=== PATIENT | male | born 1965 | race Caucasian/White ===

== ENCOUNTER → 2023-06-10 17:13 | Outpatient (REF) | payer BC, SELFPAY ==
[2023-06-10 17:40] LABS: % Basophils 0.7 % (0-2); % Immature Granulocytes 0.1 % (0-0.5); % Lymphocytes 19.8 % (20.5-51.1); % Monocytes 8.9 % (1.7-9.3); % Neutrophils 68.5 % (42.2-75.2); Absolute Basophils 0.1 10^3/uL (0-0.2); Absolute Eosinophils 0.2 10^3/uL (0-0.7); Absolute Lymphocytes 1.5 10^3/uL (1.2-3.4); Absolute Monocytes 0.7 10^3/uL (0.1-0.6); Absolute Neutrophils 5.2 10^3/uL (1.4-6.5); Hematocrit 35.9 % (39.0-52.0); Hemoglobin 12.3 g/dL (13.0-18.0); Mean Corp Hgb Conc. 34.3 g/dL (33.0-37.0); Mean Corpuscular Hgb 29.4 pg (27.0-31.0); Mean Corpuscular Volume 85.7 fL (80.0-94.0); Mean Platelet Volume 8.7 fL (7.4-10.4); Nucleated Red Blood Cells % 0 % (-); Platelet Count 256 10^3/uL (130-400); Red Blood Cell Count 4.19 10^6/uL (4.70-6.10); Red Cell Dist. Width 12.6 % (11.5-14.5); White Blood Cell Count 7.6 10^3/uL (4.8-10.8)
[2023-06-10 18:24] LABS: PSA, Total - Diagnostic 6.82 ng/ml (0.0-4.0)
== END ==
LOC: REG 17:13
PROVIDERS: ATTENDING PHYSICIAN Specialist; FAMILY PHYSICIAN Family Medicine
DX: D72.89 Other specified disorders of white blood cells (principal); R97.20 Elevated prostate specific antigen [PSA]
CPT/HCPCS: 36415; 84153; 85025

== ENCOUNTER → 2023-07-08 16:29 | Outpatient (REF) | payer BC, SELFPAY ==
[2023-07-08 17:40] LABS: % Eosinophils 2.8 % (0-6); % Immature Granulocytes 0.4 % (0-0.5); % Lymphocytes 29.3 % (20.5-51.1); % Monocytes 14.2 % (1.7-9.3); % Neutrophils 52.3 % (42.2-75.2); Absolute Basophils 0.1 10^3/uL (0-0.2); Absolute Eosinophils 0.1 10^3/uL (0-0.7); Absolute Lymphocytes 1.4 10^3/uL (1.2-3.4); Absolute Monocytes 0.7 10^3/uL (0.1-0.6); Absolute Neutrophils 2.6 10^3/uL (1.4-6.5); Hemoglobin 12.3 g/dL (13.0-18.0); Mean Corp Hgb Conc. 34.2 g/dL (33.0-37.0); Mean Corpuscular Hgb 29.7 pg (27.0-31.0); Mean Platelet Volume 8.9 fL (7.4-10.4); Nucleated Red Blood Cells % 0 % (-); Platelet Count 271 10^3/uL (130-400); Red Blood Cell Count 4.14 10^6/uL (4.70-6.10); Red Cell Dist. Width 12.7 % (11.5-14.5); White Blood Cell Count 4.9 10^3/uL (4.8-10.8)
[2023-07-08 17:55] LABS: Iron 102 ug/dl (49-181)
[2023-07-08 18:04] LABS: Percent Saturation 31 % (20-50); Total Iron Binding Capacity 328 ug/dl (261-462)
[2023-07-08 19:30] LABS: Ferritin 60.1 ng/ml (17.9-464.0)
[2023-07-08 20:00] LABS: Folate 18.9 ng/ml (2.76-20)
== END ==
LOC: REG 16:29
PROVIDERS: ATTENDING PHYSICIAN Family Medicine
DX: D64.9 Anemia, unspecified (principal)
CPT/HCPCS: 36415; 82728; 82746; 83540; 83550; 85025

== ENCOUNTER → 2023-08-03 07:44 | Outpatient (REF) | payer BC, SELFPAY ==
[2023-08-04 13:42] LABS: FIT-Fecal Occult Blood Interp Negative
== END ==
LOC: REG 07:44
PROVIDERS: ATTENDING PHYSICIAN Family Medicine
DX: D64.9 Anemia, unspecified (principal)
CPT/HCPCS: 83520

== ENCOUNTER → 2023-08-09 15:52 | Outpatient (REF) | payer BC, SELFPAY ==
[2023-08-09 17:14] LABS: PSA, Total - Diagnostic 7.13 ng/ml (0.0-4.0)
== END ==
LOC: REG 15:52
PROVIDERS: ATTENDING PHYSICIAN Specialist; FAMILY PHYSICIAN Family Medicine
DX: R97.20 Elevated prostate specific antigen [PSA] (principal)
CPT/HCPCS: 36415; 84153

== ENCOUNTER → 2023-08-19 16:22 | Outpatient (REF) | payer OTHER, BC, SELFPAY | LOC: RAD 16:22 | PROVIDERS: ATTENDING PHYSICIAN Family Medicine | DX: M54.2 Cervicalgia (principal); M54.59 Other low back pain | CPT/HCPCS: 72052; 72110 ==

== ENCOUNTER 2023-09-29 18:52 | Outpatient (RCR) | payer OTHER, BC, SELFPAY | END 2023-09-29 23:59 | disposition home or self-care (01) | LOC: RPT 18:52 | PROVIDERS: ATTENDING PHYSICIAN Physical Medicine & Rehabilitation; FAMILY PHYSICIAN Family Medicine | DX: M50.30 Other cervical disc degeneration, unspecified cervical region (principal); S13.9XXS Sprain of joints and ligaments of unspecified parts of neck, sequela; S33.5XXS Sprain of ligaments of lumbar spine, sequela; V89.2XXS Person injured in unspecified motor-vehicle accident, traffic, sequela; Z73.6 Limitation of activities due to disability | CPT/HCPCS: 97010; 97110; 97112; 97140; 97163 ==

== ENCOUNTER 2023-10-27 17:17 | Outpatient (RCR) | payer OTHER, BC, SELFPAY | END 2023-10-27 23:59 | disposition home or self-care (01) | LOC: RPT 17:17 | PROVIDERS: ATTENDING PHYSICIAN Physical Medicine & Rehabilitation; FAMILY PHYSICIAN Family Medicine | DX: S13.9XXS Sprain of joints and ligaments of unspecified parts of neck, sequela (principal); S33.5XXS Sprain of ligaments of lumbar spine, sequela; M50.30 Other cervical disc degeneration, unspecified cervical region; M51.36 Other intervertebral disc degeneration, lumbar region; V89.2XXS Person injured in unspecified motor-vehicle accident, traffic, sequela; Z73.6 Limitation of activities due to disability | CPT/HCPCS: 97010; 97110; 97112; 97140 ==

== ENCOUNTER → 2023-11-01 08:25 | Outpatient (REF) | payer OTHER, BC, SELFPAY ==
[2023-11-01 09:52] LABS: % Eosinophils 3.6 % (0-6); % Immature Granulocytes 0.3 % (0-0.5); % Lymphocytes 33.1 % (20.5-51.1); % Monocytes 11.8 % (1.7-9.3); % Neutrophils 50.2 % (42.2-75.2); Absolute Eosinophils 0.1 10^3/uL (0-0.7); Absolute Monocytes 0.4 10^3/uL (0.1-0.6); Absolute Neutrophils 1.5 10^3/uL (1.4-6.5); Mean Corp Hgb Conc. 34.2 g/dL (33.0-37.0); Mean Corpuscular Hgb 30.1 pg (27.0-31.0); Mean Platelet Volume 9.1 fL (7.4-10.4); Nucleated Red Blood Cells % 0 % (-); Platelet Count 258 10^3/uL (130-400); Red Blood Cell Count 4.32 10^6/uL (4.70-6.10); Red Cell Dist. Width 12.5 % (11.5-14.5); White Blood Cell Count 3.1 10^3/uL (4.8-10.8)
[2023-11-01 10:27] LABS: ALT (SGPT) 20 U/L (0-50); AST (SGOT) 22 U/L (17-59); Albumin 4.1 g/dl (3.5-5.0); Alkaline Phosphatase 60 U/L (38-126); Blood Urea Nitrogen 11 mg/dl (9-20); Carbon Dioxide 28 mmol/L (22-30); Chloride 105 mmol/L (98-107); Glucose 92 mg/dl (70-99); HDL Cholesterol 59 mg/dl; Iron 136 ug/dl (49-181); LDL Cholesterol, Calculated 109 mg/dl; Potassium 4.4 mmol/L (3.5-5.1); Sodium 138 mmol/L (135-145); Total Bilirubin 0.6 mg/dl (0.2-1.3); Total Cholesterol 183 mg/dl (50-199); Total Protein 6.4 g/dl (6.3-8.2); Triglyceride 79 mg/dl (10-149); Very Low Density Lipoprotein 15 mg/dl (0-30); eGFR > 60.00
[2023-11-01 12:09] LABS: Ferritin 83.6 ng/ml (17.9-464.0)
[2023-11-01 12:41] LABS: Folate > 20.0 ng/ml (2.76-20)
[2023-11-01 13:41] LABS: Vitamin B12 > 1000 pg/ml (239-931)
== END ==
LOC: REG 08:25
PROVIDERS: ATTENDING PHYSICIAN Family Medicine
DX: I10 Essential (primary) hypertension (principal); Z00.00 Encounter for general adult medical examination without abnormal findings; D64.9 Anemia, unspecified
CPT/HCPCS: 36415; 80053; 80061; 82607; 82728; 82746; 83540; 85025

== ENCOUNTER 2023-12-01 16:48 | Outpatient (RCR) | payer OTHER, BC, SELFPAY | END 2023-12-01 23:59 | disposition home or self-care (01) | LOC: RPT 16:48 | PROVIDERS: ATTENDING PHYSICIAN Physical Medicine & Rehabilitation; FAMILY PHYSICIAN Family Medicine | DX: M50.30 Other cervical disc degeneration, unspecified cervical region (principal); S13.9XXS Sprain of joints and ligaments of unspecified parts of neck, sequela; S33.5XXS Sprain of ligaments of lumbar spine, sequela; V89.2XXS Person injured in unspecified motor-vehicle accident, traffic, sequela; Z73.6 Limitation of activities due to disability; M51.36 Other intervertebral disc degeneration, lumbar region | CPT/HCPCS: 97010; 97110; 97112; 97140; 97530 ==

== ENCOUNTER 2023-12-27 16:54 | Outpatient (RCR) | payer OTHER, BC, SELFPAY | END 2023-12-27 23:59 | disposition home or self-care (01) | LOC: RPT 16:54 | PROVIDERS: ATTENDING PHYSICIAN Physical Medicine & Rehabilitation; FAMILY PHYSICIAN Family Medicine | DX: S13.9XXD Sprain of joints and ligaments of unspecified parts of neck, subsequent encounter (principal); S13.9XXS Sprain of joints and ligaments of unspecified parts of neck, sequela; S33.5XXD Sprain of ligaments of lumbar spine, subsequent encounter; M50.30 Other cervical disc degeneration, unspecified cervical region; S33.5XXS Sprain of ligaments of lumbar spine, sequela; V89.2XXS Person injured in unspecified motor-vehicle accident, traffic, sequela; M51.36 Other intervertebral disc degeneration, lumbar region; Z73.6 Limitation of activities due to disability; V43.92XD Unspecified car occupant injured in collision with other type car in traffic accident, subsequent encounter | CPT/HCPCS: 97110; 97112; 97140; 97535 ==

== ENCOUNTER 2024-01-31 17:01 | Outpatient (RCR) | payer OTHER, BC, SELFPAY | END 2024-01-31 23:59 | disposition home or self-care (01) | LOC: RPT 17:01 | PROVIDERS: ATTENDING PHYSICIAN Physical Medicine & Rehabilitation; FAMILY PHYSICIAN Family Medicine | DX: M50.30 Other cervical disc degeneration, unspecified cervical region (principal); S13.9XXD Sprain of joints and ligaments of unspecified parts of neck, subsequent encounter (principal); S13.9XXS Sprain of joints and ligaments of unspecified parts of neck, sequela; S33.5XXD Sprain of ligaments of lumbar spine, subsequent encounter; S33.5XXS Sprain of ligaments of lumbar spine, sequela; V89.2XXS Person injured in unspecified motor-vehicle accident, traffic, sequela; M51.360 Other intervertebral disc degeneration, lumbar region with discogenic back pain only; Z73.6 Limitation of activities due to disability; V43.92XD Unspecified car occupant injured in collision with other type car in traffic accident, subsequent encounter | CPT/HCPCS: 97110; 97112; 97140 ==

== ENCOUNTER 2024-02-07 19:12 | Outpatient (RCR) | payer OTHER, BC, SELFPAY | END 2024-02-17 12:46 | disposition home or self-care (01) | LOC: RPT 19:12 | PROVIDERS: ATTENDING PHYSICIAN Physical Medicine & Rehabilitation; FAMILY PHYSICIAN Family Medicine | DX: S13.9XXD Sprain of joints and ligaments of unspecified parts of neck, subsequent encounter (principal); M50.30 Other cervical disc degeneration, unspecified cervical region (principal); S13.9XXS Sprain of joints and ligaments of unspecified parts of neck, sequela; S33.5XXD Sprain of ligaments of lumbar spine, subsequent encounter; S33.5XXS Sprain of ligaments of lumbar spine, sequela; M51.360 Other intervertebral disc degeneration, lumbar region with discogenic back pain only; V89.2XXS Person injured in unspecified motor-vehicle accident, traffic, sequela; Z73.6 Limitation of activities due to disability; V43.92XD Unspecified car occupant injured in collision with other type car in traffic accident, subsequent encounter | CPT/HCPCS: 97110; 97112 ==

== ENCOUNTER → 2024-02-09 16:49 | Outpatient (REF) | payer BC, SELFPAY | LOC: RAD 16:49 | PROVIDERS: ATTENDING PHYSICIAN Physician Assistant Medical | DX: M79.661 Pain in right lower leg (principal) | CPT/HCPCS: 93971 ==

== ENCOUNTER → 2024-03-08 16:23 | Outpatient (REF) | payer BC, SELFPAY ==
[2024-03-08 17:44] LABS: PSA, Total - Diagnostic 6.76 ng/ml (0.0-4.0)
== END ==
LOC: REG 16:23
PROVIDERS: ATTENDING PHYSICIAN Specialist; FAMILY PHYSICIAN Family Medicine
DX: R97.20 Elevated prostate specific antigen [PSA] (principal)
CPT/HCPCS: 36415; 84153

== ENCOUNTER → 2024-06-08 07:30 | Outpatient (REF) | payer BC, SELFPAY ==
[2024-06-08 09:44] LABS: ALT (SGPT) 32 U/L (0-50); AST (SGOT) 20 U/L (17-59); Albumin 3.9 g/dl (3.5-5.0); Alkaline Phosphatase 58 U/L (38-126); Blood Urea Nitrogen 16 mg/dl (9-20); Calcium 10.1 mg/dl (8.4-10.2); Carbon Dioxide 33 mmol/L (22-30); Chloride 105 mmol/L (98-107); Glucose 94 mg/dl (70-99); Potassium 4.8 mmol/L (3.5-5.1); Sodium 140 mmol/L (135-145); Total Bilirubin 0.6 mg/dl (0.2-1.3); Total Protein 6.4 g/dl (6.3-8.2); eGFR > 60.00
[2024-06-08 09:49] LABS: % Basophils 0.9 % (0-2); % Eosinophils 4.1 % (0-6); % Immature Granulocytes 0.3 % (0-0.5); % Lymphocytes 28.5 % (20.5-51.1); % Monocytes 10.6 % (1.7-9.3); % Neutrophils 55.6 % (42.2-75.2); Absolute Eosinophils 0.1 10^3/uL (0-0.7); Absolute Monocytes 0.4 10^3/uL (0.1-0.6); Absolute Neutrophils 1.9 10^3/uL (1.4-6.5); Hematocrit 40.4 % (39.0-52.0); Hemoglobin 13.9 g/dL (13.0-18.0); Mean Corp Hgb Conc. 34.4 g/dL (33.0-37.0); Mean Corpuscular Hgb 30.3 pg (27.0-31.0); Mean Platelet Volume 8.8 fL (7.4-10.4); Nucleated Red Blood Cells % 0 % (-); Platelet Count 312 10^3/uL (130-400); Red Blood Cell Count 4.59 10^6/uL (4.70-6.10); Red Cell Dist. Width 12.5 % (11.5-14.5); White Blood Cell Count 3.4 10^3/uL (4.8-10.8)
[2024-06-08 10:17] LABS: TSH 1.85 uIU/ml (0.47-4.68)
== END ==
LOC: HWLAB 07:30
PROVIDERS: ATTENDING PHYSICIAN Family Medicine
DX: R21 Rash and other nonspecific skin eruption (principal); I10 Essential (primary) hypertension; N40.0 Benign prostatic hyperplasia without lower urinary tract symptoms; D64.9 Anemia, unspecified; Z01.84 Encounter for antibody response examination
CPT/HCPCS: 36415; 80053; 84443; 85025; 86735; 86765

== ENCOUNTER → 2024-12-21 07:21 | Outpatient (REF) | payer BC, SELFPAY ==
[2024-12-21 13:55] LABS: HDL Cholesterol 63 mg/dl; LDL Cholesterol, Calculated 89 mg/dl; Very Low Density Lipoprotein 16 mg/dl (0-30)
== END ==
LOC: HWLAB 07:21
PROVIDERS: ATTENDING PHYSICIAN Family Medicine
DX: I10 Essential (primary) hypertension (principal); N40.0 Benign prostatic hyperplasia without lower urinary tract symptoms; Z00.01 Encounter for general adult medical examination with abnormal findings
CPT/HCPCS: 36415; 80061

== ENCOUNTER → 2024-12-25 09:37 | Outpatient (REF) | payer BC, SELFPAY ==
[2024-12-25 13:16] LABS: PSA, Total - Diagnostic 4.56 ng/ml (0.0-4.0)
== END ==
LOC: HWRAD 09:37
PROVIDERS: ATTENDING PHYSICIAN Specialist; FAMILY PHYSICIAN Student in an Organized Health Care Education/Training Program
DX: R31.9 Hematuria, unspecified (principal)
CPT/HCPCS: 36415; 74150; 84153

== ENCOUNTER 2025-01-17 06:29 | Day surgery (SDC) | payer BC, SELFPAY ==
[2025-01-09 09:04] LABS: Hematocrit 38.6 % (39.0-52.0); Hemoglobin 12.6 g/dL (13.0-18.0); Mean Corp Hgb Conc. 32.6 g/dL (33.0-37.0); Mean Corpuscular Volume 87.1 fL (80.0-94.0); Platelet Count 275 10^3/uL (130-400); Red Cell Dist. Width 12.9 % (11.5-14.5)
[2025-01-09 09:35] LABS: Blood Urea Nitrogen 15 mg/dl (9-20); Calcium 9.7 mg/dl (8.4-10.2); Carbon Dioxide 27 mmol/L (22-30); Chloride 108 mmol/L (98-107); Glucose 90 mg/dl (70-99); Potassium 4.3 mmol/L (3.5-5.1); Sodium 138 mmol/L (135-145); eGFR > 60.00
[2025-01-09 13:59] VITALS: BMI 28.8
[2025-01-17] VITALS (8 sets, daily range): BP systolic 142–161; BP diastolic 78–93; BMI 28.8
[2025-01-17] MEDS: NORMOSOL-R/PLASMALYTE-A 1000 IV (08:11)
== END 2025-01-17 13:20 | disposition home or self-care (01) ==
LOC: SDS 06:29
PROVIDERS: ATTENDING PHYSICIAN Specialist; FAMILY PHYSICIAN Family Medicine
DX: N20.0 Calculus of kidney (principal); N21.0 Calculus in bladder
CPT/HCPCS: 52356; 36415; 74018; 76000; 80048; 82365; 85027; 93005; C1894; C2617